=== PATIENT | female | born 1995 | race Caucasian/White ===

== ENCOUNTER 2018-04-21 21:40 | Emergency (ER) | payer BC ==
[2018-04-21 22:26] VITALS: BP 146/92
--- NOTE | 2018-04-21 23:01 | UC ---
Throat Pain/Nasal Chip HPI - HPI Summary HPI Summary: 22 y/o male presents to the urgent care c/o neck pain and soreness for the past week. Pt reports she did a heavy abdominal work last week and since then she noticed her neck muscles were sore. She has been working out the entire week. This morning when she woke up, she palpated a mass in the front of ner neck that is mildly tender to touch and when she swallows it is hard and painful. Jackie is 3/10. Pt states she feels fine. She denies weight lost or gain in the past 3 months, fatigue, fevers, chills, BELL, chest pain, palpitations, abdominal pain, N/V/D. Pt is UTD w/ all vaccines for her age. - History of Current Complaint Chief Complaint: Sophy Stated Complaint: SORE THROAT Time Seen by Provider: 04/21/18 22:50 Hx Obtained From: Patient Hx Last Menstrual Period: irreg. Onset/Duration: Gradual Onset, Lasting Weeks - 1 week, Still Present, Worse Since - today when she woke up she noticed the medck mass Severity: Mild Pain Intensity: 3 - at touch Pain Scale Used: 0-10 Numeric Cough: None Associated Signs & Symptoms: Positive: Dysphagia - mild when she swallows. Negative: FB Sensation, Drooling, Hoarseness, Nasal Discharge, Fever - Epiglottits Risk Factors Epiglottis Risk Factors: Negative - Allergies/Home Medications Allergies/Adverse Reactions: Allergies Allergy/AdvReac Type Severity Reaction Status Date / Time No Known Allergies Allergy Verified 04/21/18 22:18 Home Medications: Home Medications Levonorgestrel (Iud) [Mirena IUD] 20 mcg IU DAILY 04/21/18 [History Confirmed ] Methylphenidate ER TAB* [Concerta ER TAB*] 18 mg PO DAILY 04/21/18 [History Confirmed 04/21/18] PMH/Surg Hx/FS Hx/Imm Hx Previously Healthy: Yes - Pt denies PMHX - Surgical History Surgical History: Yes Surgery Procedure, Year, and Place: wisdom teeth 2015 - Family History Known Family History: Positive: Diabetes - Social History Occupation: Student Lives: With Family Alcohol Use: Occasionally Substance Use Type: None Smoking Status (MU): Never Smoked Tobacco - Immunization History Vaccination Up to Date: Yes Review of Systems All Other Systems Reviewed And Are Negative: Yes Constitutional: Positive: Negative Skin: Positive: Negative Eyes: Positive: Negative ENT: Positive: Other - neck mass w/ mild tenderness Respiratory: Positive: Negative Cardiovascular: Positive: Negative Gastrointestinal: Positive: Negative Genitourinary: Positive: Negative Motor: Positive: Negative Neurovascular: Positive: Negative Musculoskeletal: Positive: Negative Neurological: Positive: Negative Psychological: Positive: Negative Is Patient Immunocompromised?: No Physical Exam - Summary Physical Exam Summary: VITAL SIGNS: Reviewed. GENERAL: Patient is a well developed and nourished female who is sitting comfortable in the examining table. Patient is not in any acute respiratory distress. HEAD AND FACE: No signs of trauma. No ecchymosis, hematomas or skull depressions. No sinus tenderness. EYES: PERRLA, EOMI x 2, No injected conjunctiva, no nystagmus. No photophobia. EARS: Hearing grossly intact. Ear canals and tympanic membranes are within normal limits. MOUTH: pharynx with no erythema, no exudates, no palatal petechiae. No B/L tonsillar enlargement. Uvula in midline. NECK: Supple, trachea is midline, negative anterior cervical lymphadenopathy, no JVD, no carotid bruit, no c-spine tenderness, neck with full ROM. No meningeal signs, no Kernig's or brudzinskis signs. Positive palpable small movable mass over the thyroid gland w/ mild tenderness on palpation. CHEST: Symmetric, no tenderness at palpation LUNGS: Clear to auscultation bilaterally. No wheezing or crackles. CVS: Regular rate and rhythm, S1 and S2 present, no murmurs or gallops appreciated. ABDOMEN: Soft, non-tender. No signs of distention. No rebound no guarding, and no masses palpated. Bowel sounds are normal. EXTREMITIES: FROM in all major joints, no edema, no cyanosis or clubbing. NEURO: Alert and oriented x 3. No acute neurological deficits. Speech is normal and follows commands. SKIN: Dry and warm Triage Information Reviewed: Yes Vital Signs: Initial Vital Signs Temp 98 F 04/21/18 22:20 Pulse 112 04/21/18 22:20 Resp 18 04/21/18 22:20 BP 146/92 04/21/18 22:20 Pulse Ox 98 04/21/18 22:20 Throat Pain/Nasal Course/Dx - Course Course Of Treatment: 22 y/o male presents to the urgent care c/o neck pain and soreness for the past week. Pt reports she did a heavy abdominal work last week and since then she noticed her neck muscles were sore. She has been working out the entire week. This morning when she woke up, she palpated a mass in the front of ner neck that is mildly tender to touch and when she swallows it is hard and painful. Jackie is 3/10. Pt states she feels fine. She denies weight lost or gain in the past 3 months, fatigue, fevers, chills, BELL, chest pain, palpitations, abdominal pain, N/V/D. Pt is UTD w/ all vaccines for her age.Hx obtained. Pt w/ palpable small movable mass over the thyroid gland w/ mild tenderness on palpation on examination. Pt is afebrile w/o any lymphadenopathy and hemodynamically stable. Rapid strep: negative. PT may need an Ultrasound to r/o a thyroid nodule. No Us available at this moment. Pt's symptoms discussed w / Dr Packer and he thinks it is a Thryroidglossal duct cyst and recommends ENT referral. Pt expalined the importance to f/u w/ ENT for further evuation and treatment of possible thyroid cyst. Also advised to f/u w/ PCP for blood work and management. Pt Rx ibuprofen PO to alleviate symptoms. Pt's BP is elevated today advised to decrease salt in diet, monitor BP and f/u with PCP for further management. D/c instructions explained. Pt understood and agreed plan of care an left clinic ambulating and hemodynamically stable. - Differential Dx/Diagnosis Differential Diagnosis/HQI/PQRI: Epiglottitis, Laryngitis, Peritonsillar Abscess , Pharyngitis, Other - thyroid nodule Provider Diagnoses: 1- Thyroglossal duct cyst. 2- Elevated BP w/o Hx of HTN Discharge - Sign-Out/Discharge Documenting (check all that apply): Patient Departure - D/c home All imaging exams completed and their final reports reviewed: No Studies - Discharge Plan Condition: Stable Disposition: HOME Patient Education Materials: Thyroid Nodules (ED) Referrals: [facility] [place] [facility] [Outside] - 2 Days Mike Lewis MD [Medical Doctor] - 2 Days Additional Instructions: 1- You probably have a Thyroglossal duct cyst on your neck. 2- Please f/u w/ ENT Dr Lewis for further evaluation and treatment 3- Take Ibuprofen PO 600mg q6-8hrs to alleviate pain and swelling and avoid strenuous exercise. 4- Your BP is elevated today. please decrease salt in your diet, monitor BP and if it continues to be elevated please f/u with your PCP for further management - Billing Disposition and Condition Condition: STABLE Disposition: Home
== END 2018-04-21 23:30 | disposition home or self-care (01) ==
LOC: UCEAST 21:40
DX: Q89.2 Congenital malformations of other endocrine glands (principal); R03.0 Elevated blood-pressure reading, without diagnosis of hypertension
CPT/HCPCS: 87651; 99201; G0463

== ENCOUNTER 2018-05-19 06:27 | Day surgery (SDC) | payer BC ==
[~2018-05-19 06:27] MED LIST: Buffered Lidocaine 0.9% SYRIN* 5 ML/SYR SYRINGE INTRADERM ONE; Famotidine IV* 10 MG/ML 2 ML (20 mg) IV ONE
[2018-05-19] MEDS ORDERED: Famotidine IV* 10 MG/ML 2 ML (20 mg) ONE (06:33)
[2018-05-19] MEDS ORDERED: Methylene Blue 0.5 %* 50 MG/10 ML AMP IV ONE (07:06)
[2018-05-19] MEDS ORDERED: Propofol* 10 MG/ML 20 ML BTL ONE (07:14)
[2018-05-19] MEDS ORDERED: Ondansetron INJ* 2 MG/ML VIAL ONE (07:14)
[2018-05-19] MEDS ORDERED: Dexamethasone IV* 4 MG/ML 1 ML (4 MG) ONE (07:14)
[2018-05-19] MEDS ORDERED: Lidocaine 2% PF * 5 ML VIAL ONE (07:14)
[2018-05-19] MEDS ORDERED: fentaNYL* 50 MCG/ML 2 ML VIAL (100 MCG VIAL) ONE ×3 (07:15→09:17)
[2018-05-19] MEDS ORDERED: Midazolam* 1 MG/ML 5 ML VIAL (5 MG) ONE (07:15)
[2018-05-19] MEDS ORDERED: Cisatracurium* 2 MG/ML MDV 5 ML ONE (07:15)
[2018-05-19] MEDS ORDERED: Naloxone* 0.4 MG/ML 1 ML VIAL IV PRN (08:21)
[2018-05-19] MEDS ORDERED: oxyCODONE/Acetamin 5/325 MG* TAB PO PRN (08:21)
[2018-05-19] MEDS ORDERED: Ondansetron INJ* 2 MG/ML VIAL IV PRN (08:21)
[2018-05-19] MEDS ORDERED: Glycopyrrolate IV* 0.2 MG/ML 1 ML VIAL ONE (08:29)
[2018-05-19] MEDS ORDERED: Neostigmine Methylsulfate* 1 MG/ML 10 ML VIAL (1 mg/ml) ONE (08:29)
[2018-05-19] MEDS ORDERED: HYDROcodone/ACET. 7.5/325 LIQ* 15 ML UDC ONE (08:58)
[2018-05-19] MEDS: fentaNYL* 50 MCG/ML 2 ML VIAL (100 MCG VIAL) IV PRN ×4 (09:00→09:57)
[2018-05-19 10:17] VITALS: BP 106/57
--- NOTE | 2018-05-19 13:05 | OP ---
OPERATIVE REPORT: DATE OF OPERATION: 05/19/18. DATE OF : [birth year]. SURGEON: Larry Lora MD. PRE-OP DIAGNOSIS: Thyroglossal duct cyst. POST-OP DIAGNOSIS: Thyroglossal duct cyst. OPERATIVE PROCEDURE: Excision of thyroglossal duct cyst in a Nasir type procedure. BRIEF HISTORY: This 22--year-old female with a history of midline cyst inflamed, painful. Ultrasoun d of cystic structure protruding tongue with mobility highly suspicious for thyroglossal duct cyst. DESCRIPTION OF PROCEDURE: The patient was taken to the operating room. General anesthetic was given and the patient was intubated. The neck was then prepped and draped in the usual fashion. A small incision is made above the gland. Subplatysmal flaps were elevated. Strap muscles were then divided in the midline and the cyst was identified. Careful blunt and sharp dissection was carried of the cy st all the way towards the hyoid. The mid portion of the hyoid was skeletonized and then subsequentl y resected out. The tract was followed further and then cauterized to the base of the tongue. Small TLS drain was inserted. The wound was then closed in two layers. The patient was awakened, and sen t to recovery room in stable condition. Instrument and sponge count correct. Blood loss minimal. [id number]/[facility] #: [id number]
== END 2018-05-19 10:49 | disposition home or self-care (01) ==
LOC: OR 06:27
PROVIDERS: ATTEND Otolaryngology
DX: Q89.2 Congenital malformations of other endocrine glands (principal); F90.9 Attention-deficit hyperactivity disorder, unspecified type
CPT/HCPCS: 81025; 88305; J1100; J2250; J2405; J2704; J2710; J3010